=== PATIENT | female | born 1980 | race Caucasian/White ===

== ENCOUNTER 2021-03-24 13:30 | Emergency (ER) | payer OTHER ==
[~2021-03-24] VITALS: Ht 167.6 cm; Wt 83.9 kg
[2021-03-24] MEDS ORDERED: MOTION SICKNESS25 M1 PO (20:23)
[2021-03-24] MEDS ORDERED: DIPHEDRYL25 M2 PO (20:23)
== END 2021-03-24 22:33 | disposition home or self-care (01) ==
LOC: ER 13:30
DX: R42 Dizziness and giddiness (principal)

== ENCOUNTER 2021-04-06 15:09 | Outpatient (CLI) | payer OTHER ==
[~2021-04-06 15:09] MED LIST: DIPHEDRYL25 M2 PO; MOTION SICKNESS25 M1 PO
[2021-04-20] MEDS ORDERED: ACETAMINOPHEN650 M2 (06:14)
== END 2021-04-06 16:39 | disposition home or self-care (01) ==
LOC: OFIC 805 15:09
PROVIDERS: ATTEND Otolaryngology Otology & Neurotology
DX: R42 Dizziness and giddiness (principal)